=== PATIENT | male | born 1960 | race African-American/Black ===

== ENCOUNTER 2017-03-28 08:34 | Emergency (ER) | payer OTHER, BC ==
--- NOTE | 2017-03-28 08:44 | EDM.PDOC ---
ED HPI GENERAL MEDICAL PROBLEM - General Chief Complaint: Laceration Stated Complaint: CUT FINGER AT WORK Time Seen by Provider: 03/28/17 08:35 Source of Information: Reports: Patient, RN, RN Notes Reviewed, Other (Employer) History Limitations: Reports: No Limitations - History of Present Illness INITIAL COMMENTS - FREE TEXT/NARRATIVE: Patient presents to the emergency room at [facility] after he sustained a laceration to the dorsum of the right index finger. This is a work-related injury. According to the patient's roads supervisor, the patient got his finger caught in a drill at work. The patient denies any previous injury to the affected site. No previous right finger surgeries. The patient denies any numbness, tingling, paresthesia to the affected digit. The patient's tetanus status is up-to-date. Onset: Today Onset Date: 03/28/17 Onset Time: 08:00 ED ROS GENERAL - Review of Systems Review Of Systems: See Below Constitutional: Denies: Fever, Chills, Weakness Respiratory: Denies: Shortness of Breath, Cough Cardiovascular: Denies: Chest Pain, Palpitations Skin: Reports: Wound (cut to finger) Neurological: Reports: No Symptoms. Denies: Numbness, Paresthesia, Tingling ED EXAM, SKIN/RASH Exam: See Below Exam Limited By: No Limitations General Appearance: Alert, No Apparent Distress Respiratory/Chest: No Respiratory Distress, Lungs Clear, Normal Breath Sounds Cardiovascular: Regular Rate, Rhythm Peripheral Pulses: 2+: Radial (L), Radial (R) Neurological: Alert, Oriented Skin: Warm, Dry, Normal Color, No Rash, Wound/Incision (Laceration to dorsum of right index finger) Location, Skin: Upper Extremity, Right ED SKIN PROCEDURES - Laceration/Wound Repair Right Dorsal Finger Lac/Wound length In cm: 2 Appearance: Subcutaneous, Linear, Clean Distal NVT: Neuro & Vascular Intact, No Tendon Injury Anesthetic Type: Local Local Anesthesia - Lidocaine (Xylocaine): 1% Plain Local Anesthetic Volume: 5cc Skin Prep: Chlorhexidine (Hibiciens), Saline Exploration/Debridement/Repair: Wound Explored, In a Bloodless Field, Explored to Base, No Foreign Material Found, Wound Margins Revised Closed with: Sutures Suture Size: 4-0 # of Sutures: 5 Suture Type: Nylon, Interrupted, Simple Sterile Dressing Applied: Nurse Tetanus Status Addressed: Yes Complications: No Course - Orders/Labs/Meds Meds: Medications Discontinued Medications Generic Name Dose Route Start Last Admin Trade Name Jelani PRN Reason Stop Dose Admin Lidocaine HCl 5 ml 03/28/17 08:44 03/28/17 08:53 Xylocaine-Mpf 1% INJECT 03/28/17 08:45 5 ml ONETIME ONE Administration Departure - Departure Time of Disposition: 09:11 Disposition: Home, Self-Care 01 Condition: Good Clinical Impression: Encounter related to worker's compensation claim Finger laceration Qualifiers: Encounter type: initial encounter Finger: index finger Damage to nail status: without damage Foreign body presence: without foreign body Laterality: right Qualified Code(s): S61.210A - Laceration without foreign body of right index finger without damage to nail, initial encounter - Discharge Information Instructions: Laceration Care, Adult, [id number], Sutured Wound Care Referrals: Lisbeth Jones DO [Physician] - Forms: ED Department Discharge Additional Instructions: 1. Keep area clean and dry 2. Sutures need to stay in for 10 days 3. Avoid and bending of the right index finger until sutures are removed 4. No antibiotics warranted 5. May alternate Tylenol/Advil as needed 6. See your Primary in 10 days for suture removal and recheck of wound 7. Call with any questions/concerns - Problem List Review Problem List Initiated/Reviewed/Updated: Yes
== END 2017-03-28 09:20 | disposition home or self-care (01) ==
LOC: VM.ED 08:34
DX: S61.210A Laceration without foreign body of right index finger without damage to nail, initial encounter (principal); W23.0XXA Caught, crushed, jammed, or pinched between moving objects, initial encounter; Y99.0 Civilian activity done for income or pay
CPT/HCPCS: 12001; 99283

== ENCOUNTER 2019-10-09 05:55 | Emergency (ER) | payer BC, OTHER ==
--- NOTE | 2019-10-09 06:21 | EDM.PDOC ---
ED HPI GENERAL MEDICAL PROBLEM - General Chief Complaint: General Stated Complaint: Fever, body aches, cough, nasal congestion Time Seen by Provider: 10/09/19 06:20 Source of Information: Reports: Patient History Limitations: Reports: No Limitations - History of Present Illness INITIAL COMMENTS - FREE TEXT/NARRATIVE: Patient has been feverish and chills for the past 24 hours. No sick contact. Tried tylenol without results. Body aches. Loss of energy and appetite. Onset: Gradual Body aches Pain Score (Numeric/FACES): 6 - Related Data Allergies Allergy/AdvReac Type Severity Reaction Status Date / Time No Known Allergies Allergy Verified 10/09/19 06:12 Home Meds: Home Meds Oseltamivir [Tamiflu] 75 mg PO BID #10 cap 10/09/19 [Rx] Past Medical History Musculoskeletal History: Reports: Back Pain, Chronic Social & Family History - Tobacco Use Smoking Status *Q: Current Status Unknown ED ROS GENERAL - Review of Systems Review Of Systems: Comprehensive ROS is negative, except as noted in HPI. ED EXAM, GENERAL - Physical Exam Exam: See Below Exam Limited By: No Limitations General Appearance: Alert, Anxious, Moderate Distress, Other (appears ill) Throat/Mouth: Normal Inspection Head: Atraumatic Neck: Normal Inspection Respiratory/Chest: No Respiratory Distress Cardiovascular: Normal Peripheral Pulses Psychiatric: Normal Affect Skin Exam: Warm, Diaphoretic Course - Vital Signs Last Recorded V/S: Last Vital Signs Temp 36.9 C 10/09/19 06:00 Pulse 68 10/09/19 06:00 Resp 16 10/09/19 06:00 BP 100/63 10/09/19 06:00 Pulse Ox 96 10/09/19 06:00 Departure - Departure Time of Disposition: 07:30 Disposition: Home, Self-Care 01 Condition: Good Clinical Impression: Influenza B - Discharge Information *PRESCRIPTION DRUG MONITORING PROGRAM REVIEWED*: Not Applicable *COPY OF PRESCRIPTION DRUG MONITORING REPORT IN PATIENT JAK: Not Applicable Prescriptions: Oseltamivir [Tamiflu] 75 mg PO BID #10 cap Instructions: Influenza, Adult, [id number] Referrals: PCP,Unobtain [Primary Care Provider] - Forms: ED Department Discharge, ED Return to Work/School Form Additional Instructions: Influenza B positive. Keep good hygiene and wear a mask when around others. Start Tamiflu. Stay hydrated. Sepsis Event Note - Evaluation Sepsis Screening Result: No Definite Risk - Focused Exam Date Exam was Performed: 10/16/19 Time Exam was Performed: 12:05
== END 2019-10-09 07:51 | disposition home or self-care (01) ==
LOC: VM.ED 05:55
DX: J10.1 Influenza due to other identified influenza virus with other respiratory manifestations (principal)
CPT/HCPCS: 87804; 87804-59; 99283

== ENCOUNTER 2024-06-02 09:45 | Emergency (ER) | payer BC | END 2024-06-02 10:23 | disposition home or self-care (01) | LOC: VM.ED 09:45 | DX: E16.2 Hypoglycemia, unspecified (principal) | CPT/HCPCS: 82947; 99284 ==